=== PATIENT | female | born 1940 ===

== ENCOUNTER → 2020-05-08 | Outpatient (CLI) | payer OTHER ==
[~2020-05-08] VITALS: Ht 160 cm; Wt 57.2 kg
[~2020-05-08] MED LIST: ALEVE220 MG PO; FISH OIL 1,0001 EAC9 PO; HYDROCHLOROTH12.5 M1 PO; PRINIVIL10 MG PO; VITAMIN D3 COM1 EACH PO
--- NOTE | ~2020-05-08 | HPC ---
[facility] [address] [place] [address] PAIN MANAGEMENT CONSULTATION Name: CATA MEYERS Room #: REG [facility] Rena.#: [id number] Admission: 05/08/20 Attend Phys: Guille Palacios DO Discharge: Date of : 40 Report #: [id number] CC: Karel Miguel MD DATE OF SERVICE: 05/08/2020 REFERRING PHYSICIAN: Jb Miguel MD. CHIEF COMPLAINT: Low back pain, bilateral lower extremity pain with paresthesias. HISTORY OF PRESENT ILLNESS: As you know, the patient is a very pleasant 79-year-old female who reports longstanding history of low back pain, bilateral lower extremity pain, which began 06/2019. She states initially physical therapy was extremely helpful in alleviating most of her symptoms. Unfortunately, her symptoms returned. She went back to physical therapy and this did not provide much in the way of improvement. She does typically participate in daily physical activity utilizing an elliptical for up to an hour day, but unable to do so since exacerbation of symptoms. Due to the lack of improvement with conservative treatment and reduction in her daily function, she sought further evaluation through her primary care team. They tried the patient on various treatment protocols without benefit. She was then subsequently referred to our clinic after undergoing imaging study, which showed changes of the lumbar spine, significant enough that interventional treatments need to be addressed and possible surgical options. She is referred to our service to discuss those treatment options. The patient indicates today pain is periodic and intermittent. She describes the pain as burning, shooting, sharp, numbness and tingling. Places current pain score 6/10, daily average at 6/10, worst pain has been is 10/10. The patient states her pain is exacerbated with standing and walking, improves with reclining. She has been referred to our service to discuss treatment options for lumbar radiculopathy. PAST MEDICAL HISTORY: 1. Hypertension. 2. Degenerative joint disease. 3. Osteoarthritis. PAST SURGICAL HISTORY: 1. Hysterectomy. 2. Lumbar spine surgery times 2, 1971 and 1978. 3. Vaginal enterocele repair. 4. Rotator cuff repair. SOCIAL HISTORY: The patient denies tobacco, IV or illicit drug use. Admits to occasional alcohol beverage. She is retired, retired about 6 months ago, not receiving workmen's compensation nor is she trying to obtain discrete benefits. She is not in litigation in regards to pain. She is unaccompanied at today's visit. REVIEW OF SYSTEMS: Positive for fatigue and weakness, eye disease, wearing corrective eyewear, hearing loss with tinnitus, low back pain, bilateral lower extremity pain and paresthesias. All other review of systems negative per 12-point review of systems other than those listed in history of present illness. Pain impact score 36/70 indicating moderate interference of daily activities secondary to pain. ALLERGIES: SULFA AND TETANUS. CURRENT MEDICATIONS: Lisinopril 10 mg b.i.d., hydrochlorothiazide 12.5 mg once a day, omega-3 fish oil 1 tab per day, multivitamin 1 tab per day, naproxen sodium 220 mg twice a day. IMAGING: MRI lumbar spine obtained 02/19/2018 shows slight right convexity at L3-L4 through S1, degenerative changes noted throughout the lumbar spine, moderate sized central disk extrusion at the L3-L4 level with mass effect upon the right lateral recess. There is also a small left central disk extrusion at the L2-L3 level. There is no new imaging. PHYSICAL EXAMINATION: VITAL SIGNS: Blood pressure 120/68, pulse 71, respiratory rate 16 and unlabored. The patient is 100% on room air. Height 5 feet 3 inches tall, weight 126 pounds, BMI calculated 22.3. GENERAL: Well-developed, well-nourished, well-hydrated 79-year-old female appearing stated age, placing current pain score around 6/10. HEENT: Normocephalic, atraumatic. Pupils equal, round and reactive to light. NEUROLOGIC: Speech is fluent. The patient deemed an excellent historian. LUNGS: Clear, no wheeze, rhonchi, no rales. CARDIOVASCULAR: Regular. No appreciable gallop, no rub. ABDOMEN: Soft, nontender, nondistended, normoactive bowel sounds. EXTREMITIES: Show no clubbing, no cyanosis. No appreciable edema. MUSCULOSKELETAL: There is some palpatory tenderness noted over the paraspinal musculature of lower lumbar spine. No spinous process tenderness. Seated straight leg raising negative. Supine straight leg raising is equivocal mainly affecting the right lower extremity. Ankle clonus negative. Babinski is negative. Lumbar provocation testing including extension, rotation, lateral flexion all intensify axial back pain. The patient can toe walk and heel walk without complications. ASSESSMENT: 1. Symptomatic lumbar radiculopathy. 2. Displacement of lumbar intervertebral disk with radiculopathy. 3. 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 4. Neural foraminal stenosis of the lumbar spine. 5. Chronic intractable pain. PLAN: 1. Based on today's physical exam and history the patient has provided, the descriptors the patient uses in regards to pain as well as the distribution of symptoms, it would appear the patient is suffering from lumbar radiculopathy secondary to central canal stenosis given the bilateral nature of her condition. I do have imaging here though it is 2 years in the past, which provides us little or no information in regards to what is currently going on with the patient. She did have changes at the L3-L4 level with a central extrusion that has probably progressed. I cannot advise the patient further as we do not have any recent imaging to help direct care further. We did discuss with the patient the treatment options based on the 2018 findings and her current distribution of symptoms. The following was discussed with the patient today. We discussed physical therapy, stretching exercises and core strengthening as a treatment option. We discussed medication management with suggestions of treatment utilizing neuropathic pain medications and consistent nonsteroidal anti-inflammatory. We discussed lumbar epidural injection under fluoroscopic guidance to address what appears to be central canal lumbar radiculopathy. We also discussed surgical options with the patient. After reviewing the risks and benefits of all proposed treatment options, the patient chose to undergo lumbar epidural injection under fluoroscopic guidance. 2. The patient was advised due to third constitution party payer restrictions, authorization would have to be obtained before the patient could undergo a lumbar epidural injection. Authorization could take anywhere from 4-7 working days. We will begin this process immediately. Once we have this authorization obtained, we will have the patient return to undergo the first in a series of lumbar epidural injections to address her symptoms. 3. No medication changes made at today's visit. We did discuss medications with the patient today. She wishes to consider this option. 4. We are planning to see the patient back in followup visit, hopefully in the next week to undergo a lumbar epidural injection. It usually takes around 4 working days for authorization for epidural injections to be obtained. We will begin this process and hopefully have her back quickly. 5. We wish to thank Dr. Jb Miguel for the opportunity to see this patient in consultation. We will keep you apprised of response to treatment as we address suspected lumbar radiculopathy. Again, we wish to thank you for the opportunity to see the patient in consultation. By: [id number] Guille Palacios DO /nt
[2020-05-08 13:37] VITALS: BP 128/68
--- NOTE | 2020-05-08 14:22 | NUR ---
Pain Clinic Assessment: 1. History of Osteoarthritis: HANDS History of Rheumatoid Arthritis: Not Applicable 2. Height: 5 ft. 3 in. 160.0 cm. Weight: 126.0 lb. oz. 57.153 kg. Patient's BMI: 22.3 3. Vital Signs: BP: 128/68 Pulse: 71 Resp: 16 Temp: 02 Sat: 100 ECG Mon: 4. Pain Intensity: 6 5. Fall Risk: Dizziness: Y Needs help standing or walking: N Fallen in the last 3 months: N Fall risk comments: 6. Patient on Blood Thinner: None 7. History of Hypertension: Y 8. Opioid Therapy greater than 6 weeks: N Opiate Contract Signed: 9. Risk Assessment Tool Provided: 10. Functional Assessment Tool: 11. Recreational Drug Use: Never Drug Type: Tobacco Use: Former Smoker Tobacco Type: Amount or Packs/day: How Many Years: Alcohol Use: Yes Frequency: Weekly Quant: 1
== END ==
LOC: PAIN 06:55
PROVIDERS: ATTEND Anesthesiology Pain Medicine
DX: M51.16 Intervertebral disc disorders with radiculopathy, lumbar region (principal); M48.061 Spinal stenosis, lumbar region without neurogenic claudication; M79.604 Pain in right leg; M79.605 Pain in left leg; R20.2 Paresthesia of skin; G89.29 Other chronic pain; Z88.8 Allergy status to other drugs, medicaments and biological substances; Z79.899 Other long term (current) drug therapy

== ENCOUNTER → 2020-05-15 | Outpatient (CLI) | payer OTHER ==
[~2020-05-15] VITALS: Ht 160 cm; Wt 59.0 kg
--- NOTE | ~2020-05-15 | HPC ---
[facility] [address] [place] [address] PAIN MANAGEMENT CONSULTATION Name: CATA MEYERS Room #: REG [facility].#: [id number] Admission: 05/15/20 Attend Phys: Guille Palacios DO Discharge: Date of : 40 Report #: [id number] CC: Karel BELTRAN DATE OF SERVICE: 05/15/2020 REFERRING PHYSICIAN: Jb Beltran MD. CHIEF COMPLAINT: Low back pain, bilateral lower extremity pain with paresthesias. HISTORY OF PRESENT ILLNESS: As you know, the patient is a very pleasant 80-year-old female who presents with longstanding history of low back pain, bilateral lower extremity pain with paresthesias that began in 06/2019. She was sent to our clinic after failing a second round of physical therapy to assist in pain control. She was seen in our clinic, 05/08/2020 and advised of different treatment options for lumbar radiculopathy. She chose to undergo lumbar epidural injection. She returns today in followup visit to undergo the procedures as we now have received authorization. She is placing current pain score at 5-10/10. No new injury or trauma that may have led to continuation of symptoms. ALLERGIES: SULFA AND TETANUS. CURRENT MEDICATIONS: Lisinopril/hydrochlorothiazide, omega-3 fish oil, multivitamin, and naproxen sodium. SOCIAL HISTORY: The patient denies tobacco, alcohol, IV or illicit drug use. She is retired. She is unaccompanied on today's visit. IMAGING: No new imaging available. PQRS: The patient has known arthritic changes of the cervical spine, bilateral hands, bilateral hips and knees. No rheumatoid arthritis. Placing current pain score 5-10/10. She is not a fall risk nor has she had a fall in last 3 months. She is not on blood thinners, but is treated for hypertension. She is not on chronic opioids, has a low opiate addiction potential. Pain impact today 36/70, moderate interference of daily activities secondary to pain. PHYSICAL EXAMINATION: VITAL SIGNS: Blood pressure 126/66, pulse 73, respiratory rate 16 and unlabored. The patient is 100% on room air. Height 5 feet 3 inches tall, weight 130 pounds, BMI calculated 23.0. GENERAL: Well-developed, well-nourished, well-hydrated 80-year-old female appearing stated age. She is in no acute distress, awake, alert and oriented x 3. Current pain score is rated at 5-10/10. HEENT: Normocephalic, atraumatic. Speech is fluent. EXTREMITIES: Show no clubbing, no cyanosis, no edema. MUSCULOSKELETAL: Lower extremity strength does appear equal and symmetrical, 5/5. Seated straight leg raising negative. Supine straight leg raising is equivocal. Ankle clonus negative. Babinski is negative. Gait is mildly antalgic favoring right lower extremity. ASSESSMENT: 1. Symptomatic lumbar radiculopathy. 2. Displacement of lumbar intervertebral disk with radiculopathy. 3. 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 4. Neural foraminal stenosis of lumbar spine. 5. Facet arthropathy of the lumbar spine. 6. Chronic intractable pain. PLAN: 1. The patient returns today in followup visit to undergo lumbar epidural injection under fluoroscopic guidance. She has received authorization to undergo the procedure today. She is placing her current pain score anywhere from 5-10/10. The patient denies any changes in her medical history since our last visit. There has been no new injury or trauma that led to continuation of pain. We have achieved this authorization for the patient to undergo an epidural injection today. She has been advised risks and benefits of the procedure. The following was described as the risks of this procedure. We discussed the risks that include but are not necessarily limited to bleeding, bruising, infection, worsening pain, no relief of pain, also risk of temporary or permanent muscle weakness, temporary or permanent nerve damage, possible paralysis and . The patient states she understood and wished to proceed. 2. No medication changes made at today's visit. The patient will continue current medical therapy as prior prescribed. 3. I plan to see the patient back in followup visit in 30 days. At that time, review the efficacy of today's epidural injection and determine if next in the series of epidural injections might be warranted. We are hopeful that the patient will see good and prolonged benefit with today's epidural injection. DESCRIPTION OF PROCEDURE: L5-S1 right paramedian epidural steroid injection under fluoroscopic guidance. This is the lumbar epidural injection procedure of the first series that the patient is undergoing. After obtaining written consent, the patient was taken back to the fluoroscopy suite, placed in a prone position with pillow under the abdomen to decrease lumbar lordosis. The skin overlying the lumbosacral area was then prepped and draped in aseptic fashion. The L5-S1 vertebral interspace was then identified by AP fluoroscopy. The skin and subcutaneous tissue overlying the target site of injection was anesthetized with 3 mL 1% lidocaine. A 20-gauge 3.5-inch Tuohy needle was then advanced under fluoroscopic guidance towards the epidural space using a right paramedian approach. The epidural space was identified using loss of resistance to air technique. After negative aspiration for heme or cerebrospinal fluid, a total of 1 mL of Omnipaque was injected. A lumbar epidurogram was confirmed using both AP and lateral fluoroscopy. After negative aspiration for heme or cerebrospinal fluid, 5 mL of a solution containing 2 mL, 40 mg per mL and 80 mg total of triamcinolone along with 3 mL of lidocaine 1% was injected in increments. Contrast spread was noted in posterior epidural space. The needle was then retracted approximately half way and needle tract flushed with 1 mL of 1% lidocaine. Needle was then removed. There were no apparent sensory or motor deficits in the lower extremity following the procedure. A sterile bandage was placed over the injection site. The heart rate, pulse, oximetry and blood pressure were continuously monitored after the procedure. There were no complications. The patient tolerated the procedure well and was carefully escorted to the recovery room in stable condition. There were no apparent complications. After meeting discharge criteria, the patient was then discharged home. By: [id number] Guille Palacios DO /laura
[2020-05-15 10:30] VITALS: BP 126/66
--- NOTE | 2020-05-15 10:44 | NUR ---
Pain Clinic Assessment: 1. History of Osteoarthritis: HANDS History of Rheumatoid Arthritis: Not Applicable 2. Height: 5 ft. 3 in. 160.0 cm. Weight: 130.0 lb. oz. 58.968 kg. Patient's BMI: 23.0 3. Vital Signs: BP: 126/66 Pulse: 73 Resp: 16 Temp: 02 Sat: 100 ECG Mon: 4. Pain Intensity: 5 up to 10 5. Fall Risk: Dizziness: N Needs help standing or walking: N Fallen in the last 3 months: N Fall risk comments: 6. Patient on Blood Thinner: None 7. History of Hypertension: Y 8. Opioid Therapy greater than 6 weeks: N Opiate Contract Signed: 9. Risk Assessment Tool Provided: 0-low 10. Functional Assessment Tool: 11. Recreational Drug Use: Never Drug Type: Tobacco Use: Former Smoker Tobacco Type: Amount or Packs/day: How Many Years: Alcohol Use: Yes Frequency: Special Occasions Quant: 1
== END | disposition home or self-care (01) ==
LOC: PAIN 06:50
PROVIDERS: ATTEND Anesthesiology Pain Medicine
DX: M51.16 Intervertebral disc disorders with radiculopathy, lumbar region (principal); G89.29 Other chronic pain; M47.26 Other spondylosis with radiculopathy, lumbar region; M48.061 Spinal stenosis, lumbar region without neurogenic claudication; I10 Essential (primary) hypertension; M19.90 Unspecified osteoarthritis, unspecified site; Z98.890 Other specified postprocedural states; Z79.899 Other long term (current) drug therapy; Z88.2 Allergy status to sulfonamides; Z88.8 Allergy status to other drugs, medicaments and biological substances